=== PATIENT | male | born 1990 | race Caucasian/White ===

== ENCOUNTER 2018-11-27 09:12 | Emergency (ER) | payer BC, OTHER ==
[2018-11-27 09:29] VITALS: BP 102/64
--- NOTE | 2018-11-27 10:16 | UC ---
Lower Extremity/Ankle HPI - HPI Summary HPI Summary: This patient is a 28-year-old male who presents to the urgent care with chief complaint of having left knee, left foot and left ankle pain after he accidentally fell 5 the stairs. He reports that he was carrying a dog and he slipped and fell. Patient reports that he is able to bear weight however is bradycardia painful. He reports that the pain is 10 out of 10 that he puts weight and no pain when he is not putting any weight on the left ankle. He denies any head trauma, denies any neck pain. He has no other complaints. - History of Current Complaint Chief Complaint: UCLowerExtremity Stated Complaint: ANKLE INJURY Time Seen by Provider: 11/27/18 09:53 Hx Obtained From: Patient Severity Currently: Moderate Pain Intensity: 6 - Allergies/Home Medications Allergies/Adverse Reactions: Allergies Allergy/AdvReac Type Severity Reaction Status Date / Time No Known Allergies Allergy Verified 11/27/18 09:22 Home Medications: Home Medications Ibuprofen TAB* [Motrin TAB* 400 MG] 400 mg PO Q6H PRN 11/27/18 [History Confirmed 11/27/18] PMH/Surg Hx/FS Hx/Imm Hx Previously Healthy: Yes - Surgical History Surgical History: None - Family History Known Family History: Positive: Non-Contributory - Social History Alcohol Use: None Substance Use Type: None Smoking Status (MU): Heavy Every Day Tobacco Smoker Amount Used/How Often: 1 PPD Review of Systems All Other Systems Reviewed And Are Negative: Yes Constitutional: Positive: Negative Skin: Positive: Negative Eyes: Positive: Negative ENT: Positive: Negative Respiratory: Positive: Negative Cardiovascular: Positive: Negative Gastrointestinal: Positive: Negative Genitourinary: Positive: Negative Motor: Positive: Other - knee, ankle and foot pain s/p fall Musculoskeletal: Positive: Negative Neurological: Positive: Negative Psychological: Positive: Negative Is Patient Immunocompromised?: No Physical Exam - Summary Physical Exam Summary: VITAL SIGNS: Reviewed. GENERAL: Patient is a well developed and nourished male who is sitting comfortable in the stretcher. Patient is not in any acute respiratory distress. HEAD AND FACE: Normocephalic and atraumatic. EYES: PERRLA, EOMI x 2, EARS: Hearing grossly intact. MOUTH: Oropharynx within normal limits. NECK: Supple, trachea is midline, no adenopathy, no JVD, no carotid bruit, no c- spine tenderness, neck with full ROM. CHEST: Symmetric, no tenderness at palpation LUNGS: CTA B/L. No wheezing or crackles. CVS: RRR, S1 and S2 present, no murmurs or gallops appreciated. ABDOMEN: Soft, NT, No distention. Normal BS. EXTREMITIES: Left knee with abrasion done 1 week ago. FROM of knee and draw test negative. Left ankle with swelling in the lateral maleolus and decrease ROM secondary to pain. Foot with good pulses. NEURO: Alert and oriented x 3. No acute neurological deficits. Speech is normal and follows commands. SKIN: Dry and warm Triage Information Reviewed: Yes Vital Signs: Initial Vital Signs Temp 98.9 F 11/27/18 09:23 Pulse 71 11/27/18 09:23 Resp 16 11/27/18 09:23 BP 102/64 11/27/18 09:23 Pulse Ox 98 11/27/18 09:23 Diagnostics - Radiology Ankle and foot x ray Radiology Interpretation Completed By: Radiologist Summary of Radiographic Findings: IMPRESSION: SOFT TISSUE SWELLING. JOINT EFFUSION. NO ACUTE OSSEOUS INJURY. IF SYMPTOMS PERSIST,. RECOMMEND REPEAT IMAGING. knee x ray Radiology Interpretation Completed By: Radiologist Summary of Radiographic Findings: No fracture Lower Extremity Course/Dx - Course Course Of Treatment: X-rays of the knee, ankle and foot shows no fracture or dislocation, mild soft tissue swelling. The patient was in JOIE bandages, given crutches and the follow-up with primary care physician. The patient will take Tylenol or ibuprofen for pain. NO zunilda bearing for the next 2-3 days, apply ice as needed. If pain persist may return to the or go to the ED for further assessment. Patient understands and agrees. - Differential Dx/Diagnosis Provider Diagnosis: Ankle sprain, Knee pain Discharge - Sign-Out/Discharge Documenting (check all that apply): Patient Departure All imaging exams completed and their final reports reviewed: Yes - Discharge Plan Condition: Stable Disposition: HOME Patient Education Materials: Ankle Sprain (DC), Arthralgia (ED) Referrals: No Primary Care Phys,NOPCP [Primary Care Provider] - Additional Instructions: Patient will follow with PCP in the next 3 days. Take medication as indicated Continue good hydration. Take Tylenol or ibuprofen for pain or fever. Return to the urgent care if symptoms worsen. - Billing Disposition and Condition Condition: STABLE Disposition: Home
== END 2018-11-27 10:44 | disposition home or self-care (01) ==
LOC: UCEAST 09:12
DX: S93.402A Sprain of unspecified ligament of left ankle, initial encounter (principal); W10.9XXA Fall (on) (from) unspecified stairs and steps, initial encounter; Y92.9 Unspecified place or not applicable; M25.472 Effusion, left ankle; M25.475 Effusion, left foot; M25.562 Pain in left knee; F17.200 Nicotine dependence, unspecified, uncomplicated
CPT/HCPCS: 99212; G0463